=== PATIENT | male | born 1970 | race Two or more races ===

== ENCOUNTER 2025-05-27 13:44 | Emergency (ER) | payer OTHER ==
[~2025-05-27] VITALS: Ht 170.2 cm; Wt 99.4 kg
[2025-05-27] MEDS: HYDROcodone-ACET 7.5/325MG TAB PO ONE (15:03)
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
[2025-05-27 15:33] VITALS: BP 152/102; PULSE 77; RESP 16; TEMP 98.2; O2SAT 97
[2025-05-27] MEDS ORDERED: NAPR-957 PO (15:39)
[2025-05-27] MEDS ORDERED: METH-1181 PO (15:39)
== END 2025-05-27 15:42 | disposition home or self-care (01) ==
LOC: ER 13:44
DX: M50.30 Other cervical disc degeneration, unspecified cervical region (principal); V89.2XXA Person injured in unspecified motor-vehicle accident, traffic, initial encounter; Y93.89 Activity, other specified; Y92.410 Unspecified street and highway as the place of occurrence of the external cause; Y99.8 Other external cause status
CPT/HCPCS: 72040; 72100